=== PATIENT | female | born 1930 | race Caucasian/White ===

== ENCOUNTER 2020-06-19 16:38 | Emergency (ER) | payer OTHER, MEDICAID ==
[~2020-06-19] VITALS: Ht 157.5 cm; Wt 63.5 kg
[2020-06-19 16:56] VITALS: BP_SYST 240
--- NOTE | 2020-06-19 17:00 | NUR ---
Placed in room 3 . Placed on nutritional assistant, blood pressure machine and pulse oximeter. To gown for exam. Side rails up. Report given to Cristina DAI.
--- NOTE | 2020-06-19 17:04 | NUR ---
ER at bedside examining patient.
--- NOTE | 2020-06-19 17:10 | NUR ---
PT BIB DAUGHTER FROM HOME WITH CO SWOLLEN LEFT FOOT. REPORTS PAIN FOR SEVERAL MONTHS, TODAY COULD NOT DEAL WITH THE PAIN. FOOT IS SWOLLEN, RED, DRY. PT REPORTS HX OF HTN, HLD. AAOX4, BP IS ELEVATED. AWARE
--- NOTE | 2020-06-19 17:15 | NUR ---
# 20 gauge angiocath placed to LAC. Use of asceptic technique. Opsite placed over site. Blood return noted. Blood for lab drawn from site. Flushed with 10 cc of normal saline. No evidence of infiltration noted. Patient tolerated well.
[2020-06-19 17:31] LABS: BASOPHILS % (AUTO) 0.5 % (0.0-2.0); EOSINOPHILS # (AUTO) 0.1 K/uL (0.0-0.4); EOSINOPHILS % (AUTO) 0.8 % (0.0-4.0); HEMATOCRIT 36.1 % (36-48); HEMOGLOBIN 12.4 g/dL (12.0-16.0); LYMPHOCYTES # (AUTO) 1.3 K/uL (1.0-5.5); MEAN CORPUSCULAR HEMOGLOBIN 33 pg (27-31); MEAN CORPUSCULAR HGB CONC 34 % (32-36); MEAN CORPUSCULAR VOLUME 97 fL (79.0-98.0); MONOCYTES % (AUTO) 12.2 % (1.7-9.3); NEUTROPHILS # (AUTO) 5.8 K/uL (1.8-7.7); NEUTROPHILS % (AUTO) 70.5 % (40.0-70.0); PLATELET COUNT (AUTO) 287 K/uL (130-430); RED BLOOD CELL COUNT(AUTO) 3.72 MIL/uL (4.2-6.2); RED CELL DISTRIBUTION WIDTH 13.6 % (9.0-15.0); WHITE BLOOD COUNT (AUTO) 8.2 K/uL (4.8-10.8)
--- NOTE | 2020-06-19 17:37 | NUR ---
US AT THE BEDSIDE WITH PT
[2020-06-19 17:42] LABS: ANION GAP 6 (5-15); CALCIUM 8.6 mg/dL (8.4-11.0); CHLORIDE 93 mmol/L (98-107); CREATININE 0.84 mg/dL (0.55-1.30); GLUCOSE 125 mg/dL (70-99); POTASSIUM 4.1 mmol/L (3.5-5.1); SODIUM SERUM 125 mmol/L (136-145); UREA NITROGEN, BLOOD 16 mg/dL (8-21)
[2020-06-19 17:48] LABS: ALANINE AMINOTRANSFERASE 24 U/L (12-78); ALBUMIN 3.3 g/dL (3.4-4.8); ASPARTATE AMINOTRANSFERASE 22 U/L (10-37); C-REACTIVE PROTEIN QUANT 0.6 mg/dL (0-0.5); TOTAL BILIRUBIN 0.2 mg/dL (0.0-1.0)
--- NOTE | 2020-06-19 18:20 | NUR ---
XRAY AT BEDSIDE
--- NOTE | 2020-06-19 19:15 | NUR ---
Patient given written and verbal discharge instructions and verbalizes understanding. ER MD discussed with patient the results and treatment provided. Patient in stable condition. ID arm band removed. IV catheter removed intact and dressing applied, no active bleeding. Rx of NORCO AND IBUPROFEN given. Patient educated on pain management and to follow up with PMD. Pain Scale 3/10. Opportunity for questions provided and answered. Medication side effect fact sheet provided.
[2020-06-19 19:19] VITALS: BP_SYST 198
== END 2020-06-19 19:19 | disposition home or self-care (01) ==
LOC: SED 16:38
DX: I89.0 Lymphedema, not elsewhere classified (principal); E87.1 Hypo-osmolality and hyponatremia; I10 Essential (primary) hypertension; E11.9 Type 2 diabetes mellitus without complications
CPT/HCPCS: 36415; 80053; 83605; 85025; 85610-TC; 85730-TC; 86140; 93971; 99285